=== PATIENT | male | born 1955 | race Caucasian/White ===

== ENCOUNTER 2023-07-04 21:06 | Outpatient (REF) | payer BC, SELFPAY ==
[2023-07-04 21:18] LABS: HCT 37.4 % (40.0-50.0); HGB 12.3 g/dL (13.5-17.5); MCH 30.4 pg (27.0-33.0); MCHC 32.9 % (32.0-36.0); MCV 92 fL (80-95); MPV 9.5 fL (8.0-11.0); Platelet Count 358 10^3/uL (130-400); RBC 4.05 10^6/uL (4.36-5.78); RDW 13.4 % (11.8-14.1); RDW-SD 45.8 fL; WBC 8.38 10^3/uL (4.4-10.8)
[2023-07-04 21:43] LABS: Hemoglobin A1C 5.6 % (<5.7)
== END 2023-07-04 21:07 | disposition home or self-care (01) ==
LOC: NCHCN 21:06
PROVIDERS: Visit Provider Family Medicine
DX: Z13.1 Encounter for screening for diabetes mellitus (principal); Z86.2 Personal history of diseases of the blood and blood-forming organs and certain disorders involving the immune mechanism
CPT/HCPCS: 85027; 83036

== ENCOUNTER 2023-10-02 16:10 | Outpatient (REF) | payer BC, SELFPAY ==
[2023-10-02 22:17] LABS: Anion Gap 8.3 mmol/L (3-11); BUN 21 mg/dL (7-18); CO2 26.7 mmol/L (21.0-32.0); Calcium 9.7 mg/dL (8.5-10.1); Chloride 99 mmol/L (98-107); Estimated GFR 82.49 (mL/min/1.73m2); Glucose 93 mg/dL (74-106); Potassium 4.1 mmol/L (3.5-5.1); Sodium 134 mmol/L (136-145)
[2023-10-02 23:14] LABS: Calculated LDL 97 mg/dL (<100); Cholesterol 165 mg/dL (<200); HDL Cholesterol 47 mg/dL (40-60); Triglyceride 107 mg/dL (<150)
[2023-10-03 19:42] LABS: PSA, Screening 1.9 ng/mL (<=4.5)
== END 2023-10-02 16:11 | disposition home or self-care (01) ==
LOC: NCHCN 16:10
PROVIDERS: Visit Provider Family Medicine
DX: Z12.5 Encounter for screening for malignant neoplasm of prostate (principal); Z00.00 Encounter for general adult medical examination without abnormal findings; Z86.39 Personal history of other endocrine, nutritional and metabolic disease
CPT/HCPCS: 80048; 80061; 84153

== ENCOUNTER 2024-10-14 18:08 | Outpatient (REF) | payer BC, SELFPAY ==
[2024-10-14 16:02] LABS: Calculated LDL 124 mg/dL (<100); Cholesterol 194 mg/dL (<200); HDL Cholesterol 53 mg/dL (40-60); Triglyceride 87 mg/dL (<150)
[2024-10-14 23:41] LABS: PSA, Screening 2.6 ng/mL (<=4.5)
== END 2024-10-14 18:09 | disposition home or self-care (01) ==
LOC: NCHCN 18:08
PROVIDERS: Visit Provider Family Medicine
DX: Z00.00 Encounter for general adult medical examination without abnormal findings (principal); Z13.220 Encounter for screening for lipoid disorders
CPT/HCPCS: 80061; 84153

== ENCOUNTER 2024-12-09 13:38 | Outpatient (REF) | payer BC, SELFPAY ==
[2024-12-09 21:02] LABS: HCT 44.9 % (40.0-50.0); HGB 15.3 g/dL (13.5-17.5); MCH 31.4 pg (27.0-33.0); MCHC 34.1 % (32.0-36.0); MCV 92 fL (80-95); MPV 10.6 fL (8.0-11.0); Platelet Count 199 10^3/uL (130-400); RBC 4.87 10^6/uL (4.36-5.78); RDW 13.1 % (11.8-14.1); RDW-SD 44.3 fL; WBC 9.14 10^3/uL (4.4-10.8)
[2024-12-09 21:37] LABS: Ferritin 84 ng/mL (26-388); TSH 3.29 uIU/mL (0.36-3.74); Vitamin B12 298 pg/mL (193-986)
== END 2024-12-09 13:39 | disposition home or self-care (01) ==
LOC: NCHCN 13:38
PROVIDERS: PCP Internal Medicine; Visit Provider Internal Medicine
DX: D64.9 Anemia, unspecified (principal); R42 Dizziness and giddiness
CPT/HCPCS: 85027; 82607; 82728; 84443

== ENCOUNTER 2025-11-17 16:20 | Outpatient (REF) | payer BC, SELFPAY ==
[2025-11-17 16:03] LABS: HCT 42.5 % (40.0-50.0); HGB 14.1 g/dL (13.5-17.5); MCH 30.7 pg (27.0-33.0); MCHC 33.2 % (32.0-36.0); MCV 93 fL (80-95); MPV 10.4 fL (8.0-11.0); Platelet Count 222 10^3/uL (130-400); RBC 4.59 10^6/uL (4.36-5.78); RDW 13.5 % (11.8-14.1); RDW-SD 45.7 fL; WBC 4.43 10^3/uL (4.4-10.8)
[2025-11-17 16:35] LABS: TSH 2.86 uIU/mL (0.55-4.78)
[2025-11-17 16:43] LABS: Anion Gap 6.4 mmol/L (3-11); BUN 16 mg/dL (9-23); CO2 30.6 mmol/L (20.0-31.0); Calcium 9.7 mg/dL (8.3-10.6); Chloride 103 mmol/L (98-107); Cholesterol 174 mg/dL (<200); Glucose 72 mg/dL (74-106); HDL Cholesterol 49 mg/dL (>or=40); Potassium 4.6 mmol/L (3.5-5.1); Sodium 140 mmol/L (136-145)
[2025-11-17 17:12] LABS: Ferritin 20 ng/mL (11-307); Vitamin B12 272 pg/mL (211-911)
[2025-11-17 18:15] LABS: Hemoglobin A1C 5.6 % (<5.7)
[2025-11-18 10:30] LABS: PSA, Screening 3.0 ng/mL (<=4.5)
== END 2025-11-17 16:21 | disposition home or self-care (01) ==
LOC: NCHCN 16:20
PROVIDERS: PCP Internal Medicine; Visit Provider Family Medicine
DX: Z13.220 Encounter for screening for lipoid disorders (principal); Z12.5 Encounter for screening for malignant neoplasm of prostate; Z13.1 Encounter for screening for diabetes mellitus; Z13.29 Encounter for screening for other suspected endocrine disorder; Z86.2 Personal history of diseases of the blood and blood-forming organs and certain disorders involving the immune mechanism; Z00.00 Encounter for general adult medical examination without abnormal findings
CPT/HCPCS: 80048; 80061; 84153; 85027; 82607; 82728; 83036; 84443